=== PATIENT | female | born 1995 | race Two or more races ===

== ENCOUNTER 2019-03-22 23:45 | Emergency (ER) | payer OTHER ==
[~2019-03-22] VITALS: Ht 170.2 cm; Wt 79.5 kg
[2019-03-23] MEDS ORDERED: ROBA750T4 PO (02:11)
[2019-03-23] MEDS ORDERED: LIDO5TD TOP (02:11)
[2019-03-23] MEDS ORDERED: NAPR-837 PO (02:11)
[2019-03-23] MEDS ORDERED: KETOROLAC 60 MG/2 ML VIAL (J1885) IM ONE (02:15)
[2019-03-23] MEDS ORDERED: LIDOCAINE 5% (LIDODERM) PATCH TD ONE (02:15)
[2019-03-23] MEDS ORDERED: diazePAM 10 MG TAB PO ONE (02:15)
[2019-03-23 03:01] VITALS: BP 120/61
--- NOTE | 2019-03-23 08:08 | REP ---
Lumbar spine five views: There are no comparisons. Vertebral body heights, alignment and interspacing are normal. The pedicles are unremarkable. 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 T There is no spondylolisthesis. The facets and sacroiliac articulations are unremarkable. 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 Otherwise, negative lumbar spine. Electronically Signed by Stefan Herrera MD 03/23/2019 07:59 A
[2019-03-23] MEDS ORDERED: **NOTE PATIENT COMMENT** MISC XX ONE (14:00)
== END 2019-03-23 03:01 | disposition home or self-care (01) ==
LOC: M ED 23:45
DX: S30.0XXA Contusion of lower back and pelvis, initial encounter (principal); W22.8XXA Striking against or struck by other objects, initial encounter; Y92.012 Bathroom of single-family (private) house as the place of occurrence of the external cause; E03.9 Hypothyroidism, unspecified; Z87.891 Personal history of nicotine dependence
CPT/HCPCS: 36415; 72110; 84702; 96372; 99283; J1885